=== PATIENT | female | born 1990 | race African-American/Black ===

== ENCOUNTER 2017-12-23 17:52 | Emergency (ER) | payer OTHER ==
[~2017-12-23] VITALS: Ht 160 cm; Wt 95.3 kg
[2017-12-23 19:26] VITALS: BP 138/68
[2017-12-23] MEDS ORDERED: ZITHROMAX250 M2 PO (19:34)
[2017-12-23] MEDS ORDERED: DELTASONE20 MG PO (19:34)
--- NOTE | 2017-12-23 19:34 | ED INFLUENZA/URI COMPLAINT ---
History of Present Illness General Chief Complaint: Dyspnea (COPD, CHF, Other) Stated Complaint: DIFF BREATHING,BURNING INCHEST Source: patient Exam Limitations: no limitations Vital Signs & Intake/Output Vital Signs & Intake/Output Vital Signs Date Time Temp Pulse Resp B/P B/P Pulse O2 O2 Flow FiO2 Mean Ox Delivery Rate 12/23 1926 87 18 138/68 96 Room Air 12/23 1802 97.5 87 15 133/94 97 Room Air Room Air ED Intake and Output 12/24 0000 12/23 1200 Intake Total Output Total Balance Patient 210 lb Weight Weight Reported by Patient Measurement Method Allergies Coded Allergies: No Known Allergies (12/23/17) Reconcile Medications Azithromycin (Zithromax) 250 MG TABLET 1 DP PO AD URI 2 the first day followed by 1 for days 2-5 Prednisone (Deltasone) 20 MG TABLET 1 TAB PO DAILY URI Triage Note: PT TO ED FOR C/C OF BURNING FEELING IN CHEST/THROAT AREA. RECENTLY HAD A COLD. +BODY ACHES. Triage Nurses Notes Reviewed? yes Onset: Abrupt Duration: day(s): (4), constant, continues in ED Timing: recent history Severity: moderate, severe : No Patient currently breastfeeds: No HPI: 27-year-old female reports that she's been sick since . She's had associated runny nose congestion. She's had some body aches. She reports that today she is not experiencing a burning sensation in her throat. She is not having any difficulty breathing or chest pain. The pain in her throat has cause some discomfort. She denies any fever or vomiting or diarrhea. She comes in for further evaluation. (Jae Klein) Past History Travel History Traveled to [place] past 21 day No Medical History Any Pertinent Medical History? see below for history Neurological: NONE EENT: NONE Cardiovascular: NONE Respiratory: NONE Gastrointestinal: NONE Hepatic: NONE Renal: NONE Musculoskeletal: NONE Psychiatric: NONE Endocrine: HYPOTHYROID Blood Disorders: NONE Cancer(s): NONE SOFTWARE DESIGN MANAGER/Reproductive: NONE Surgical History Surgical History: non-contributory Psychosocial History What is your primary language Gibraltarian Tobacco Use: Never used ETOH Use: occasional use Illicit Drug Use: denies illicit drug use Family History Hx Contributory? No (Jae Klein) Review of Systems Review of Systems Constitutional: Reports: see HPI. EENTM: Reports: see HPI. Respiratory: Reports: no symptoms. Cardiovascular: Reports: no symptoms. GI: Reports: no symptoms. Genitourinary: Reports: no symptoms. Musculoskeletal: Reports: no symptoms. Skin: Reports: no symptoms. Neurological/Psychological: Reports: no symptoms. Hematologic/Endocrine: Reports: no symptoms. Immunologic/Allergic: Reports: no symptoms. All Other Systems: Reviewed and Negative (Jae Klein) Physical Exam Physical Exam General Appearance: well developed/nourished, no apparent distress, alert, awake Head: atraumatic, normal appearance Eyes: Bilateral: normal appearance. Ears, Nose, Throat: moist mucous membrane, hearing grossly normal Neck: normal inspection Respiratory: normal breath sounds, no respiratory distress Cardiovascular: regular rate/rhythm Back: normal inspection Extremities: normal inspection Neurologic/Psych: awake, alert, oriented x 3, normal gait Skin: intact, normal color Core Measures Sepsis Present: No Sepsis Focused Exam Completed? No (Jae Klein) Progress Differential Diagnosis: influenza, pneumonia, pharyngitis, sinusitis Plan of Care: Orders Procedure Date/time Status RAPID VIRAL INFLUENZA A 12/23 1804 Complete Microbiology 12/23 1804 NASOPHARYN: Influenza Virus A & B Rapid Smear - COMP Initial ED EKG: none Comments: 12/23/2017 7:43:02 PM Patient clinically looks well. Patient is no apparent distress. Nontoxic appearing. Resting comfortably on stretcher. Symptoms seem to be consistent with a viral type illness. Patient will be treated symptomatically for upper respiratory infection/tracheitis. Rest. Drink plenty of fluids. She does not appear to be any respiratory distress. Lungs sounds clear to auscultation. (Jae Klein) Departure Departure Disposition: HOME OR SELF CARE Condition: Stable Clinical Impression Primary Impression: URI (upper respiratory infection) Referrals: Unknown (PCP/Family) Additional Instructions: Taking Z-Vamsi and prednisone as prescribed. Follow-up with your PCP. Return if any concerns worsening symptoms. Please go over all results of today's visit with your primary care doctor. Contact your primary care doctor to let them know you were here in the emergency room. There may be nonspecific findings which may not be related to your visit today here in the emergency room but may require further evaluation and chronic monitoring by your primary care doctor. If you had a laceration today the chance of foreign body always remains. You should follow-up with your primary care doctor for recheck in 3-5 days for a wound check. If you had an x-ray done there is a chance that a fracture could have been missed on initial read and you should follow-up with your primary care doctor for repeat x-rays if symptoms persist. If your blood pressure was elevated here in the emergency room please have rechecked by our primary care doctor within the next 48. If you were prescribed a narcotic here in the emergency room or any type of controlled substances you're not allowed to drive while taking this medication or operate any type of heavy machinery. Narcotics can make you feel lightheaded dizziness nausea and can cause constipation. You may need to flower picker a stool softener. Thank you for choosing [facility] emergency room. Please return to the emergency room immediately if you have any other concerns worsening of symptoms. Departure Forms: Customer Survey General Discharge Information Prescriptions: Current Visit Scripts Azithromycin (Zithromax) 1 DP PO AD #6 TAB 2 the first day followed by 1 for days 2-5 Prednisone (Deltasone) 1 TAB PO DAILY #5 TAB (Jae Klein) PA/MERGERS AND ACQUISITIONS BANKER Co-Sign Statement Statement: [X] I have reviewed the ED Record and agree with the PA's/MERGERS AND ACQUISITIONS BANKER's documentation. (Sumi RDZ,Freddy Rios)
== END 2017-12-23 19:39 ==
LOC: ERH 17:52
DX: J06.9 Acute upper respiratory infection, unspecified (principal)
CPT/HCPCS: 87804; 87804-59

== ENCOUNTER 2018-07-24 20:30 | Emergency (ER) | payer OTHER ==
[~2018-07-24] VITALS: Ht 160 cm; Wt 89.8 kg
[~2018-07-24 20:30] MED LIST: DELTASONE20 MG PO; DICYCLOMINE HCL10 M1 PO; OMEPRAZOLE20 M3 PO; PRENATAL TABLE1 EAC2 PO; ZITHROMAX250 M2 PO; ZOFRAN ODT4 M1 SL
[2018-07-24 21:23] LABS: ABSOLUTE BASOPHIL COUNT 0 /CUMM (0.0-0.2); ABSOLUTE EOSINOPHIL COUNT 0.3 /CUMM (0.0-0.7); ABSOLUTE GRANULOCYTE CT 2.8 /CUMM (1.4-6.5); ABSOLUTE LYMPH COUNT 2.5 /CUMM (1.2-3.4); ABSOLUTE MONOCYTE COUNT 0.8 /CUMM (0.10-0.60); BASOPHIL % 0.7 % (0.0-2.0); EOSINOPHIL % 3.9 % (0-5); GRANULOCYTE % 44.4 % (42.2-75.2); HEMATOCRIT 34.3 % (37-47); MEAN CORPUSCULAR HGB 26.5 PG (27.0-31.0); MEAN CORPUSCULAR HGB CONC 33.5 G/DL (33.0-37.0); MEAN PLATELET VOLUME 6.9 FL (7.4-10.4); PLATELET COUNT 367 /CUMM (130-400); RBC DISTRIBUTION WIDTH 12.9 % (11.5-14.5); RED BLOOD CELL CT 4.34 /CUMM (4.20-5.40); WHITE BLOOD CELL COUNT 6.4 /CUMM (4.8-10.8)
--- NOTE | 2018-07-24 22:57 | ED GI/GU/ABDOMINAL COMPLAINT ---
History of Present Illness General Chief Complaint: General Adult Stated Complaint: 8 WEEKS PREG, BLEEDING WITH PAIN PER PT Source: patient Exam Limitations: no limitations Vital Signs & Intake/Output Vital Signs & Intake/Output Vital Signs Date Time Temp Pulse Resp B/P B/P Pulse O2 O2 Flow FiO2 Mean Ox Delivery Rate 07/24 2318 99.0 89 20 121/78 99 Room Air 07/24 2153 97.7 96 18 118/77 98 Room Air ED Intake and Output 07/25 0000 07/24 1200 Intake Total 0 Output Total Balance 0 Intake, Oral 0 Patient 198 lb Weight Weight Estimated Measurement Method Allergies Coded Allergies: No Known Allergies (12/23/17) Reconcile Medications Vit No.130/Iron/FA ( Tablet) 27 MG IRON-800 MCG TABLET 1 TAB PO DAILY Triage Note: RECEIVED 27 YO FEMALE APPROX 8 WEEKS , SEEN HERE 3X, SACK NOT VISUALIZED ON U/S. PT RECENTLY DX WITH SAMONELLA POISONING ON 07/12 BY STOOL SAMPLE AND HAD BLOOD IN STOOL. UNABLE TO PUT ON ANTIBIOTICS SECONDARY TO . PT REPORTS PELVIC AREA PAIN RADIATING TO RIGHT LOWER BACK, STARTED ABOUT 4 PM. HEAVY VAGINAL BLEEDING STARTED ABOUT 6 PM TONITE. Triage Nurses Notes Reviewed? yes ? y Is pt currently ? No Onset: Abrupt Duration: hour(s):, constant Timing: recent history Quality/Severity: cramping HPI: 27-year-old female that is currently comes into the emergency room with complaints of abdominal cramping and vaginal bleeding. Her last menstrual period was at the end of May. She was seen here the other day. Starting at the end of June she was experiencing abdominal pain and diarrhea at that time. She tested positive for Salmonella in her stool. She was not started on antibiotics due to the fact that she was . Her diarrhea has gotten better. She started with some vaginal bleeding tonight and is gone through 3 pads in the last few hours. Her Quant level was in the 200s the other day when she was here. [facility] has been seen [facility]. She denies any fever chills vomiting. Denies any other associated symptoms. Comes in for further evaluation. (Jae Klein) Past History Travel History Traveled to [place] past 21 day No Medical History Any Pertinent Medical History? see below for history Neurological: NONE EENT: NONE Cardiovascular: NONE Respiratory: NONE Gastrointestinal: NONE Hepatic: NONE Renal: NONE Musculoskeletal: NONE Psychiatric: NONE Endocrine: HYPOTHYROID Blood Disorders: NONE Cancer(s): NONE TECHNOLOGY ASSISTANT/Reproductive: NONE Surgical History Surgical History: non-contributory Psychosocial History What is your primary language Albanian Tobacco Use: Never used Family History Hx Contributory? No (Jae Klein) Review of Systems Review of Systems Constitutional: Reports: no symptoms. EENTM: Reports: no symptoms. Respiratory: Reports: no symptoms. Cardiovascular: Reports: no symptoms. GI: Reports: see HPI. Genitourinary: Reports: no symptoms. Musculoskeletal: Reports: no symptoms. Skin: Reports: no symptoms. Neurological/Psychological: Reports: no symptoms. Hematologic/Endocrine: Reports: see HPI. Immunologic/Allergic: Reports: no symptoms. All Other Systems: Reviewed and Negative (Jae Klein) Physical Exam Physical Exam General Appearance: well developed/nourished, no apparent distress, alert, awake Head: atraumatic, normal appearance Eyes: Bilateral: normal appearance. Ears, Nose, Throat, Mouth: hearing grossly normal Neck: normal inspection Respiratory: no respiratory distress Gastrointestinal: soft, tenderness (suprapubic) Back: normal inspection Extremities: normal range of motion Neurologic/Psych: awake, alert, oriented x 3 Skin: intact Core Measures ACS in differential dx? No Sepsis Present: No Sepsis Focused Exam Completed? No (Jae Klein) Progress Differential Diagnosis: ectopic , threatened miscarriage, spontaneous miscarriage, Plan of Care: Orders Procedure Date/time Status URINALYSIS 07/24 2047 Complete HUMAN BETA HCG TITRE 07/24 2047 Complete COMPREHENSIVE METABOLIC PANEL 07/24 2047 Complete CBC WITHOUT DIFFERENTIAL 07/24 2047 Complete RHOGAM WORK-UP 07/24 2047 Complete Laboratory Tests 07/24/182110: Urine Color YEL, Urine Clarity HAZY H, Urine pH 7.0, Ur Specific [place] 1.020, Urine Protein NEG, Urine Ketones NEG, Urine Nitrite NEG, Urine Bilirubin NEG, Urine Urobilinogen 0.2, Ur Leukocyte Esterase NEG, Ur Microscopic SEDIMENT EXAMINED, Urine RBC 1-3, Urine WBC 1-3 H, Urine Hemoglobin SMALL H, Urine Glucose NEG 07/24/182105: Anion Gap 9, Estimated GFR > 60, BUN/Creatinine Ratio 20.0, Glucose 100 H, Calcium 9.2, Total Bilirubin 0.3, AST 24, ALT 40, Alkaline Phosphatase 72, Total Protein 7.0, Albumin 3.8, Globulin 3.2, Albumin/Globulin Ratio 1.2, Beta HCG, Quant 858.9, CBC w Diff NO MAN DIFF REQ, RBC 4.34, MCV 79.0 L, MCH 26.5 L, MCHC 33.5, RDW 12.9, MPV 6.9 L, Gran % 44.4, Lymphocytes % 38.9, Monocytes % 12.1 H, Eosinophils % 3.9, Basophils % 0.7, Absolute Granulocytes 2.8, Absolute Lymphocytes 2.5, Absolute Monocytes 0.8 H, Absolute Eosinophils 0.3, Absolute Basophils 0 Initial ED EKG: none Comments: 07/25/2018 12:21:44 AM Patient is Rh+. Patient needs a repeat beta hCG titer in 2 days. Told to follow-up with waste management recycling technician that was provided on last visit or [facility]. If she cannot get an appointment then she will return to the ER. She already has an appointment tomorrow with [facility] she was told to keep. She is hemodynamically stable. No white count. No fever. We will continue to not treat the Salmonella infection at this time due to the fact that her symptoms are improving. (Jae Klein) Departure Departure Disposition: HOME OR SELF CARE Condition: Stable Clinical Impression Primary Impression: Vaginal bleeding before 22 weeks gestation Referrals: Unknown (PCP/Family) Additional Instructions: Follow-up with waste management recycling technician or [facility] in 2 days for repeat beta hCG titer. If you cannot get in with [facility] return to the emergency room for a repeat beta hCG titer. Please go over all results of today's visit with your primary care doctor. Contact your primary care doctor to let them know you were here in the emergency room. There may be nonspecific findings which may not be related to your visit today here in the emergency room but may require further evaluation and chronic monitoring by your primary care doctor. If you had a laceration today the chance of foreign body always remains. You should follow-up with your primary care doctor for recheck in 3-5 days for a wound check. If you had an x-ray done there is a chance that a fracture could have been missed on initial read and you should follow-up with your primary care doctor for repeat x-rays if symptoms persist. If your blood pressure was elevated here in the emergency room please have rechecked by our primary care doctor within the next 48. If you were prescribed a narcotic here in the emergency room or any type of controlled substances you're not allowed to drive while taking this medication or operate any type of heavy machinery. Narcotics can make you feel lightheaded dizziness nausea and can cause constipation. You may need to pickling solution maker a stool softener. Thank you for choosing [facility] emergency room. Please return to the emergency room immediately if you have any other concerns worsening of symptoms. Departure Forms: Customer Survey General Discharge Information (Jae Klein) PA/COUNSELOR AIDE Co-Sign Statement Statement: ED Attending supervision documentation- x I saw and evaluated the patient. I have also reviewed all the pertinent lab results and diagnostic results. I agree with the findings and the plan of care as documented in the PA's/COUNSELOR AIDE's documentation. [] I have reviewed the ED Record and agree with the PA's/COUNSELOR AIDE's documentation. [] Additions or exceptions (if any) to the PAs/COUNSELOR AIDE's note and plan are summarized below: [] (Kelsea RDZ,Ariel)
[2018-07-24 23:18] VITALS: BP 121/78
== END 2018-07-24 23:54 ==
LOC: ERH 20:30
PROVIDERS: Physician Assistant Medical
DX: O20.9 Hemorrhage in early pregnancy, unspecified (principal); Z3A.08 8 weeks gestation of pregnancy
CPT/HCPCS: 81001